=== PATIENT | male | born 1930 ===

== ENCOUNTER 2018-04-29 07:07 | Outpatient (CLI) | payer MEDICARE, OTHER ==
[~2018-04-29] VITALS: Ht 182.9 cm; Wt 82.5 kg
[2018-04-29] MEDS ORDERED: NAMENDA 10MG TA10 MG PO (08:12)
[2018-04-29] MEDS ORDERED: REQUIP0.25 MG PO (08:13)
[2018-04-29] MEDS ORDERED: CRESTOR 10MG10 MG PO (08:13)
[2018-04-29] MEDS ORDERED: PROSCAR 5MG5 MG PO (08:14)
[2018-04-29] MEDS ORDERED: FLOMAX 0.40.4 MG/CAP PO (08:15)
[2018-04-29] MEDS ORDERED: LAMICTAL XR50 MG PO (08:15)
[2018-04-29] MEDS ORDERED: ARICEPT10 MG PO (08:17)
[2018-04-29] MEDS ORDERED: PROBIOTIC FORMU1 CAP PO (08:20)
[2018-04-29] MEDS ORDERED: COLACE 100100 MG/CAP PO (08:21)
[2018-04-29] MEDS ORDERED: LEADER FIBER1 POW PO (08:21)
[2018-04-29] MEDS ORDERED: [UNRECOGNIZED DRUG - OTHER] PO (08:22)
[2018-04-29 08:23] VITALS: BP 121/52; PULSE 65; TEMP 97.1
[2018-04-29] MEDS ORDERED: B-121000 MCG PO (08:23)
--- NOTE | 2018-04-29 08:50 | NUR ---
pT TO PROCEDURE
[2018-04-29 09:33] VITALS: BP 113/53; PULSE 65
[2018-04-29 09:50] VITALS: BP 121/52; PULSE 63
[2018-04-29 10:05] VITALS: BP 116/56; PULSE 43
[2018-04-29 10:15] LABS: EOS # 0.1 (0.0-0.7); EOS % 4.2 % (0-4.0); GRAN # 1.6 (1.4-6.5); GRAN % 52.1 % (42.2-75.2); HEMOGLOBIN 11.6 g/dl (13.5-18.0); LYMPH % 31.8 % (20.0-51.0); MEAN CELL VOLUME 104 fl (80.0-100.0); MEAN CORPUSCULAR HEMOGLOBIN 35 pg (27.0-31.0); MEAN CORPUSCULAR HGB CONC 34 g/dl (33.0-37.0); MEAN PLATELET VOLUME 9.9 fl (7.4-10.4); MONO # 0.3 (0.1-0.6); MONO % 10.6 % (1.7-9.3); PLATELET COUNT 82 K/mm3 (130-400); RED BLOOD COUNT 3.29 M/mm3 (4.20-5.60); REDCELL DISTRIBUTION WIDTH-CV 13.2 % (11.5-14.5)
--- NOTE | 2018-04-29 10:25 | NUR ---
Discharge instructions given to pt.Pt verbalizes understanding.
--- NOTE | 2018-04-29 10:35 | NUR ---
Pt discharged at this time.
[2018-04-29 10:41] LABS: HEMATOCRIT 34.2 % (42.0-52.0)
== END 2018-04-29 10:35 | disposition home or self-care (01) ==
LOC: SDCO 07:07
PROVIDERS: Pathology Anatomic Pathology & Clinical Pathology
DX: D61.818 Other pancytopenia (principal); Z88.8 Allergy status to other drugs, medicaments and biological substances
CPT/HCPCS: J2704; J3010; J7120